=== PATIENT | female | born 1990 | race Caucasian/White ===

== ENCOUNTER 2021-07-01 11:02 | Emergency (ER) | payer MEDICAID ==
[~2021-07-01] VITALS: Ht 170.2 cm; Wt 88.9 kg
--- NOTE | 2021-07-01 11:15 | NUR ---
BIB [facility] 62 FROM [place],SYNCOPAL EPISODE WHILE SITTING IN HER CAR, FELL DOWN HITTING HEAD AGAINST THE GROUND. PATIENT A/OX4, BREATHING EVEN AND UNLABORED, NO SOB NOTED, C/O HEAD PAIN, LEFT HIP, LEFT LOWER EXTREMITY PAIN. ABRASION ON FOREHEAD.
--- NOTE | 2021-07-01 11:20 | NUR ---
DR. MCGINNIS AT BEDSIDE FOR EVAL
[2021-07-01 11:48] LABS: BASOPHILS % (AUTO) 0.4 % (0.0-2.0); EOSINOPHILS % (AUTO) 0.4 % (0.0-6.0); HEMATOCRIT 43 % (33-45); HEMOGLOBIN 14.4 g/dL (11.5-14.8); LYMPHOCYTES # (AUTO) 3.5 K/uL (0.8-4.8); LYMPHOCYTES % (AUTO) 35.9 % (20.0-44.0); MEAN CORPUSCULAR HGB CONC 33 g/dl (31.0-36.0); MEAN CORPUSCULAR VOLUME 87 fL (82-100); MONOCYTES # (AUTO) 0.5 K/uL (0.1-1.30); MONOCYTES % (AUTO) 5.6 % (2.0-12.0); NEUTROPHILS # (AUTO) 5.6 K/uL (1.8-8.9); NEUTROPHILS % (AUTO) 57.7 % (43.0-81.0); PLATELET COUNT (AUTO) 327 K/uL (150-450); WHITE BLOOD COUNT (AUTO) 9.8 K/uL (4.3-11.0)
[2021-07-01 11:52] LABS: CALCIUM, SERUM 8.5 mg/dL (8.5-10.1); CARBON DIOXIDE 22 mmol/L (21-32); CHLORIDE 106 mmol/L (98-107); GLUCOSE 126 mg/dL (74-106); POTASSIUM 3.9 mmol/L (3.5-5.1); SODIUM SERUM 140 mmol/L (136-145); UREA NITROGEN, BLOOD 11 mg/dL (7-18)
--- NOTE | 2021-07-01 11:53 | NUR ---
PATIENT UNABLE TO PROVIDE URINE AT THIS TIME, SIGNED A WAIVER.
[2021-07-01] MEDS ORDERED: MORPHINE SULFATE INJ 4 MG/ML DISP.SYRIN ONE ×2 (12:10→17:03)
[2021-07-01] MEDS: MORPHINE SULFATE INJ 2 MG/ML DISP.SYRIN IV ONE ×2 (12:12→17:06)
--- NOTE | 2021-07-01 12:14 | NUR ---
TERRITORY SUPERVISOR AT BEDSIDE FOR XRAY.
[2021-07-01] MEDS ORDERED: TRAZ-182 PO (12:33)
[2021-07-01] MEDS ORDERED: LAMO25TA5 PO (12:33)
[2021-07-01] MEDS ORDERED: ESCI10TA PO (12:33)
[2021-07-01] MEDS ORDERED: PROPOFOL 20 ML IV ONE (13:03)
--- NOTE | 2021-07-01 13:10 | NUR ---
PATIENT PREP FOR LEFT HIP REDUCTION UNDER MODERATE SEDATION.
--- NOTE | 2021-07-01 13:21 | NUR ---
SUCCESSFUL LEFT HIP CLOSED REDUCTION BY DR. MCGINNIS.
--- NOTE | 2021-07-01 13:22 | NUR ---
PATIENT IS NOW A/OX4. VERBALLY RESPONSIVE, VSS. CNA HHA AT BEDSIDE FOR XRAY.
--- NOTE | 2021-07-01 13:25 | NUR ---
ADDUCTOR PILLOW PLACED. KEPT LEFT LEG IMMOBILIZED.
--- NOTE | 2021-07-01 13:36 | NUR ---
CALLED [facility].
--- NOTE | 2021-07-01 13:43 | NUR ---
COVID [facility] SENT.
--- NOTE | 2021-07-01 13:59 | NUR ---
DR. GARCIA FROM [facility] CALLED AND SPOKE TO DR. MCGINNIS
[2021-07-01] MEDS ORDERED: LEVO1TAB8 PO (17:06)
[2021-07-01 17:19] VITALS: BP 116/87
--- NOTE | 2021-07-01 18:35 | NUR ---
RECEIVED A CALL FROM [facility]. PT ACCEPTED TO [facility] ROOM [address]. DR. Rodrigo METZGER IS THE ACCEPTING MD. NUMBER FOR REPORT IS [phone]. [facility] PRN ETA [id number].
--- NOTE | 2021-07-01 18:53 | NUR ---
REPORT GIVEN TO LASHAWN WELLS FOR [facility].
--- NOTE | 2021-07-01 19:19 | NUR ---
ETYMOLOGY PROFESSOR AT BEDSIDE, REPORT GIVEN TO ETYMOLOGY PROFESSOR. PATIENT A/OX4, BREATHING EVEN AND UNLABORED, VSS. PATIENT TRANSFERRED TO [facility] IN STABLE CONDITION. CD IMAGES AND PAPERORKS GIVEN TO ETYMOLOGY PROFESSOR.
== END 2021-07-01 19:21 | disposition short-term general hospital (02) ==
LOC: ER 11:04
DX: R55 Syncope and collapse (principal); S73.015A Posterior dislocation of left hip, initial encounter; W18.30XA Fall on same level, unspecified, initial encounter; Y92.039 Unspecified place in apartment as the place of occurrence of the external cause; R00.0 Tachycardia, unspecified; R94.31 Abnormal electrocardiogram [ECG] [EKG]; Z20.822 Contact with and (suspected) exposure to COVID-19
CPT/HCPCS: 27250; 36415; 73503 ×2; 80048; 84484; 85025; 87426; 93005; 96374; 96376; 99152; 99285; C9803; J2270 ×2; J2704; J7030; 73502; G0500